=== PATIENT | female | born 1960 | race Caucasian/White ===

== ENCOUNTER 2019-04-18 11:31 | Emergency (ER) | payer OTHER ==
[2019-04-18 12:57] LABS: Protime INR 0.91
[2019-04-18 13:00] LABS: Absolute Lymphocytes (CBC) 2.7 K/uL (0.7-4.9); Basophils % 0.8 % (0-1.3); Eosinophils % 0.6 % (0-4.4); Hematocrit 43.8 % (36.0-45.0); Lymphocytes % 44.9 % (15.3-44.8); MPV 9.4 fL (7.6-11.3); Monocytes % 10.1 % (3.3-12.3); RBC Red Blood Cell Count 5.08 M/uL (3.86-4.86)
[2019-04-18 13:13] LABS: ALT/SGPT 28 U/L (12-78); AST/SGOT 12 U/L (15-37); Albumin 4.2 g/dL (3.4-5.0); Alkaline Phosphatase 69 U/L (45-117); BUN Blood Urea Nitrogen 19 mg/dL (7-18); Bicarbonate 27 mmol/L (21-32); Bilirubin Direct 0.1 mg/dL (0-0.2); Bilirubin Total 0.4 mg/dL (0.2-1.0); Glucose Level 148 mg/dL (74-106); Magnesium 1.7 mg/dL (1.8-2.4); NT PRO-BNP 15 pg/mL (<125); Potassium 3.9 mmol/L (3.5-5.1); Protein, Total 7.8 g/dL (6.4-8.2); Sodium Level 138 mmol/L (136-145); Troponin (Emerg Dept Use Only) < 0.02 ng/mL (0.0-0.045)
--- NOTE | 2019-04-18 13:14 | RAD REPORT ---
EXAM DESCRIPTION: RAD - Chest Single View - 04/18/2019 1:08 pm CLINICAL HISTORY: left sided pain Chest pain. COMPARISON: No comparisons FINDINGS: Portable technique limits examination quality. The lungs are grossly clear. The heart is normal in size. No displaced fractures. IMPRESSION: No acute intrathoracic process suspected.
--- NOTE | 2019-04-18 13:15 | RAD REPORT ---
EXAM DESCRIPTION: RAD - Shoulder Left 2 View - 04/18/2019 1:08 pm CLINICAL HISTORY: shoulder pain COMPARISON: No comparisons FINDINGS: Moderate AC joint degenerative changes are present. No fracture, dislocation or AVN cat parekh
[2019-04-18 13:43] LABS: Urine Blood NEGATIVE (NEG); Urine Glucose NEGATIVE (NEG); Urine Protein NEGATIVE (NEG); Urine pH 5.5 (5.0-7.0)
[2019-04-18 13:51] LABS: Blood Morphology Comment NOT SEEN (NOT SEEN); Platelet Estimate ADEQ
--- NOTE | 2019-04-18 15:31 | EDPHYS ---
Physician Documentation [facility] Name: Savana Krueger Age: 58 yrs Sex: Female : 1960 Arrival Date: 04/18/2019 Time: 11:42 Bed 16 Private MD: ED Physician Ranjan Ray HPI: 04/18 12:26 This 58 yrs old Female presents to ER via Ambulatory with complaints of jmm Numbness Of Arm, Arm Pain. 12:26 The patient or guardian complains of pain, that is acute. Onset: The symptoms/episode jmm began/occurred acutely, 2.5 hour(s) ago. Modifying factors: The symptoms are alleviated by nothing. the symptoms are aggravated by nothing. Associated signs and symptoms: Pertinent negatives: chest pain, shortness of breath. This is a 58 year old female with a history of dm, htn, hlp, hypothyroidism that presents to the ED with complains of left shoulder pain which radiates down her left arm. Patient denies injury. Denies chest pain, denies shortness of breath. . Historical: - Allergies: 11:46 No Known Allergies; hj - PMHx: 11:46 Diabetes - NIDDM; Hypertension; Hyperlipidemia; Hypothyroidism; hj - PSHx: 11:46 Cholecystectomy; hj ROS: 12:26 Constitutional: Negative for fever, chills, and weight loss, Cardiovascular: Negative jmm for chest pain, palpitations, and edema, Respiratory: Negative for shortness of breath, cough, wheezing, and pleuritic chest pain, Abdomen/GI: Negative for abdominal pain, nausea, vomiting, diarrhea, and constipation. 12:26 MS/extremity: Positive for pain. 12:26 All other systems are negative. Exam: 12:26 Constitutional: This is a well developed, well nourished patient who is awake, alert, jmm and in no acute distress. Head/Face: atraumatic. Eyes: EOMI, no conjunctival erythema appreciated ENT: Moist Mucus Membranes Neck: Trachea midline, Supple Chest/axilla: Normal chest wall appearance and motion. 12:26 Cardiovascular: Rate: normal, Rhythm: regular. 12:26 Respiratory: the patient does not display signs of respiratory distress, Respirations: normal, Breath sounds: are clear throughout. 12:26 Back: pain elicited on palpation of the trapezius. 12:26 Musculoskeletal/extremity: ROM: intact in all extremities, decreased sensation noted along the innervation of the ulnar nerve, full seed laboratory assistant strength, full radial pulse, compartments are soft, NVI. 12:26 Skin: Appearance: Color: normal in color. 12:26 Neuro: Orientation: is normal, Mentation: is normal, Memory: is normal. 12:26 Psych: Behavior/mood is pleasant, cooperative. 12:58 ECG was reviewed by the Attending Physician. [facility] Vital Signs: 11:46 BP 180 / 94; Pulse 66; Resp 16; Temp 97.5(TE); Pulse Ox 98% on R/A; Weight 88 kg; hj Height 5 ft. 6 in. (167.64 cm); Pain 4/10; 14:33 BP 153 / 88; Pulse 63; Resp 17; Pulse Ox 100% on R/A; sg 11:46 Body Mass Index 31.31 (88.00 kg, 167.64 cm) hj MDM: 12:30 Patient medically screened. [facility] 14:30 Data reviewed: vital signs, nurses notes. Counseling: I had a detailed discussion with [facility] the patient and/or guardian regarding: the historical points, exam findings, and any diagnostic results supporting the discharge/admit diagnosis, lab results, radiology results, the need for outpatient follow up, to return to the emergency department if symptoms worsen or persist or if there are any questions or concerns that arise at home. ED course: Patient has no chest pain in the ED. Labs unremarkable. EKG normal. I do not suspect ACS at this time. Symptoms and PE findings are more consistent with radicular pain most likely from shoulder joint inflammation. Patient is advised to follow up with orthopedics and otherwise given strict return precautions. Patient understood and agrees with the plan of care. . 04/18 12:26 Order name: Basic Metabolic Panel; Complete Time: 13:17 [facility] 04/18 12:26 Order name: CBC with Diff; Complete Time: 14:01 [facility] 04/18 12:26 Order name: LFT's; Complete Time: 13:17 [facility] 04/18 12:26 Order name: Magnesium; Complete Time: 13:17 [facility] 04/18 12:26 Order name: NT PRO-BNP; Complete Time: 13:17 [facility] 04/18 12:26 Order name: PT-INR; Complete Time: 12:58 [facility] 04/18 12:26 Order name: Troponin (emerg Dept Use Only); Complete Time: 13:17 jmm 04/18 12:26 Order name: XRAY Chest (1 view); Complete Time: 13:17 jmm 04/18 12:26 Order name: EKG; Complete Time: 12:27 jmm 04/18 12:26 Order name: Cardiac monitoring; Complete Time: 12:45 jmm 04/18 12:26 Order name: EKG - Nurse/Tech; Complete Time: 12:45 jmm 04/18 12:26 Order name: Shoulder Left (2 View) XRAY; Complete Time: 13:17 jmm 04/18 12:47 Order name: Urine Dipstick--Ancillary (enter results); Complete Time: 14:01 ms 04/18 13:09 Order name: Manual Differential; Complete Time: 14:01 EDMS 04/18 12:26 Order name: IV Saline Lock; Complete Time: 12:45 jmm 04/18 12:26 Order name: Labs collected and sent; Complete Time: 12:45 jmm 04/18 12:26 Order name: O2 Per Protocol; Complete Time: 12:45 jmm 04/18 12:26 Order name: O2 Sat Monitoring; Complete Time: 12:45 jmm EC:58 Rate is 61 beats/min. Rhythm is regular. QRS [place] is Normal. LA interval is normal. QRS jmm interval is normal. QT interval is normal. No Q waves. T waves are Normal. No ST changes noted. Reviewed by me. Administered Medications: No medications were administered Disposition: 04/19 07:24 Co-signature as Attending Physician, Ranjan Ray MD I agree with the assessment and kdr plan of care. Disposition: 04/18/19 14:32 Discharged to Home. Impression: Radiculopathy. - Condition is Stable. - Discharge Instructions: Shoulder Pain, Shoulder Range of Motion Exercises. - Prescriptions for orphenadrine citrate 100 mg Oral Tablet Sustained Release - take 1 tablet by ORAL route 2 times per day As needed; 20 tablet. - Medication Reconciliation Form, Thank You Letter, Antibiotic Education, Prescription Opioid Use form. - Follow up: Neymar Miner MD; When: 2 - 3 days; Reason: Recheck today's complaints, Continuance of care, Re-evaluation by your physician. Signatures: Dispatcher [employer] EDMS Ranjan Ray MD MD kdr Mickail, Joel, PA PA jmm Smirch, Shelby, RN RN Bello Camilo RN RN Corrections: (The following items were deleted from the chart) 04/18 14:41 14:32 04/18/2019 14:32 Discharged to Home. Impression: Radiculopathy. Condition is ss Stable. Forms are Medication Reconciliation Form, Thank You Letter, Antibiotic Education, Prescription Opioid Use. Follow up: Neymar Miner; When: 2 - 3 days; Reason: Recheck today's complaints, Continuance of care, Re-evaluation by your physician. [email or web address]
--- NOTE | 2019-04-18 15:31 | ER ---
Nurse's Notes [facility] Name: Savana Krueger Age: 58 yrs Sex: Female : 1960 Arrival Date: 04/18/2019 Time: 11:42 Bed 16 Private MD: Diagnosis: Radiculopathy Presentation: 04/18 11:43 Presenting complaint: Patient states: at work today typing my L shoulder, down to my L hj arm, R elbow is hurting and feeling numb; denies chest pain; no obvious neuro deficits;. Transition of care: patient was not received from another setting of care. Onset of symptoms was April 18, 2019. Risk Assessment: Do you want to hurt yourself or someone else? Patient reports no desire to harm self or others. Initial Sepsis Screen: Does the patient meet any 2 criteria? No. Patient's initial sepsis screen is negative. Does the patient have a suspected source of infection? No. Patient's initial sepsis screen is negative. Care prior to arrival: None. 11:43 Method Of Arrival: Ambulatory 11:43 Acuity: NICOLE 3 Historical: - Allergies: 11:46 No Known Allergies; hj - PMHx: 11:46 Diabetes - NIDDM; Hypertension; Hyperlipidemia; Hypothyroidism; - PSHx: 11:46 Cholecystectomy; Assessment: 12:46 Reassessment: Patient appears in no apparent distress at this time. Patient and/or sg family updated on plan of care and expected duration. Pain level reassessed. Patient is alert, oriented x 3, equal unlabored respirations, skin warm/dry/pink. 14:09 Reassessment: Patient appears in no apparent distress at this time. Patient and/or sg family updated on plan of care and expected duration. Pain level reassessed. Patient is alert, oriented x 3, equal unlabored respirations, skin warm/dry/pink. Patient denies pain at this time. Patient states feeling better. Vital Signs: 11:46 BP 180 / 94; Pulse 66; Resp 16; Temp 97.5(TE); Pulse Ox 98% on R/A; Weight 88 kg; hj Height 5 ft. 6 in. (167.64 cm); Pain 4/10; 14:33 BP 153 / 88; Pulse 63; Resp 17; Pulse Ox 100% on R/A; sg 11:46 Body Mass Index 31.31 (88.00 kg, 167.64 cm) ED Course: 11:42 Patient arrived in ED. as 11:45 Triage completed. hj 11:46 Arm band placed on left wrist. 11:58 Michael Bowles, RN is Primary Nurse. 12:15 Lucio Najera PA is PHCP. [facility] 12:15 Ranjan Ray MD is Attending Physician. [facility] 12:46 Initial lab(s) drawn, by in, sent to lab. Inserted saline lock: 22 gauge in left sg antecubital area, using aseptic technique. Blood collected. 13:04 EKG done, by food technologist. reviewed by Lucio BURNS. dt2 13:15 XRAY Chest (1 view) In Process Unspecified. EDMS 13:15 Shoulder Left (2 View) XRAY In Process Unspecified. EDMS 14:32 Neymar Miner MD is Referral Physician. [facility] Administered Medications: No medications were administered Outcome: 14:32 Discharge ordered by MD. [facility] 14:41 Patient left the ED. Signatures: Dispatcher [employer] EDMS Michael Bowles, RN RN Lucio Najera PA PA Herminia Maher Shelby, RN RN Bello Camilo RN RN Michelle Steven dt2 Corrections: (The following items were deleted from the chart) 11:48 11:43 Acuity: NICOLE 4 hj 11:48 11:46 Pulse 66bpm; Resp 16bpm; Pulse Ox 98% RA; Temp 97.5F Temporal; 88 kg; Height 5 hj ft. 6 in.; BMI: 31.3; Pain 4/10; hj
--- NOTE | 2019-04-18 16:00 | EKG ---
Test Date: 2019-04-18 Test Time: 12:45:06 Audio Installer: IVIS MEASUREMENT RESULTS: Intervals: Rate: 61 AR: 168 QRSD: 94 QT: 436 QTc: 438 [place]: P: 61 AR: 168 QRS: 24 T: 40 INTERPRETIVE STATEMENTS: Normal sinus rhythm Normal ECG No previous ECG available for comparison Electronically Signed On 04-18-19 15:59:46 CDT by Jose D Potts
== END 2019-04-18 14:41 | disposition home or self-care (01) ==
LOC: ER 11:31
DX: M54.10 Radiculopathy, site unspecified (principal); I10 Essential (primary) hypertension; E11.9 Type 2 diabetes mellitus without complications
CPT/HCPCS: 36415; 71045; 80048; 80076; 81003; 83735; 83880; 84484; 85025; 85610; 93005; 99284